=== PATIENT | male | born 1985 | race Caucasian/White ===

== ENCOUNTER 2018-01-22 10:12 | Emergency (ER) | payer OTHER ==
--- NOTE | 2018-01-22 10:52 | EDPHY ---
H & P Stated Complaint: pt states had syncopal episode 3 weeks ago and today palpitations feels "of Time Seen by Provider: 01/22/18 10:40 - Medical/Surgical History Hx Asthma: No Hx Chronic Respiratory Disease: No Hx Diabetes: No Hx Cardiac Disease: No Hx Renal Disease: No Hx Cirrhosis: No Hx Alcoholism: No Hx HIV/AIDS: No Hx Splenectomy or Spleen Trauma: No Other PMH: denies - Social History Smoking Status: Never smoked Constitutional: Initial Vital Signs Temperature (C) 36.6 C 01/22/18 10:14 Heart Rate 58 L 01/22/18 10:14 Respiratory Rate 16 01/22/18 10:14 Blood Pressure 125/70 H 01/22/18 10:14 O2 Sat (%) 98 01/22/18 10:14 O2 Delivery Mode Room Air Allergies/Adverse Reactions: No Known Allergies Allergy (Unverified 01/22/18 10:14) Home Medications: Medication Instructions Recorded NK [No Known Home Meds] 01/22/18 Medical Decision Making ED Course/Re-evaluation: CHIEF COMPLAINT: Lightheadedness, palpitations, prior syncope HISTORY OF PRESENT ILLNESS: The patient is a normally healthy 32 y/o male who arrives with his family for evaluation of lightheadedness and palpitations onset today following a syncopal event three weeks ago. Three weeks ago while out at dinner with his family, he suddenly became "lightheaded, dizzy, overheated, and got tunnel vision." He had just eaten pizza and had two small alcoholic drinks off a flight. He walked into the bathroom to splash water on his face and lost consciousness. He followed up with his PCP following this event and she recommended following up with a residential property consultant for further evaluation. This appointment is scheduled for next week. He promised his PCP he would come to the ED if symptoms returned. Today, he developed similar lightheadedness, then noticed "heart pounding" sensation. His measured his pulse around 60 during those symptoms. REVIEW OF SYSTEMS: A comprehensive 10 system review of systems is otherwise negative aside from elements mentioned in the history of present illness and medical decision making. PHYSICAL EXAM: HR, BP, O2 Sat, RR. Temp noted General Appearance: Alert, well hydrated, appropriate, and non-toxic appearing. Head: Atraumatic without scalp tenderness or obvious injury Eyes: Pupils equal, round, reactive to light and accommodation, EOMI, no trauma , no injection. Nose: Atraumatic, no rhinorrhea, clear. Throat: Mucus membranes moist. Neck: Supple, non-tender, no lymphadenopathy. Respiratory: No retractions, no distress, no wheezes, and no accessory muscle use. Lungs are clear to auscultation bilaterally. Cardiovascular: Regular rate and rhythm, no murmurs, rubs, or gallops. Good capillary refill all extremities. Gastrointestinal: Abdomen is soft, non-tender, non-distended, no masses, no rebound, no guarding, no peritoneal signs. Musculoskeletal: Normal active ROM of all extremities, atraumatic. Neurological: Alert, appropriate, and interactive. Nonfocal apart from baseline mild left facial droop. Skin: No rashes, good turgor, no nodules on palpation. PAST MEDICAL HISTORY: Denies PAST SURGICAL HISTORY: Denies SOCIAL HISTORY: and children at bedside. Employed. PCP: Dr. Espinosa. DIAGNOSTICS/PROCEDURES/CRITICAL CARE TIME: The 12 lead EKG was interpreted by myself. Sinus mechanism, no ischemia. See hard copy and/or "tracemaster" electronic copy for interpretation. DIFFERENTIAL DIAGNOSIS: The differential diagnosis for the patient's symptoms included but was not limited to vasovagal syncope/presyncope, peripheral and central causes of vertigo, orthostatic causes including dehydration, cardiogenic and neurogenic causes, and blood loss. MEDICAL DECISION MAKING: This is a healthy 32 y/o male who presents with lightheadedness and palpitations in the setting of a syncopal episode 3 weeks ago of unknown etiology. He has a completely normal exam here. Suspect vasovagal event, though cannot exclude cardiac cause. Plan for IV, labs, EKG. EKG is normal. Labs unremarkable. Reassessed patient and discussed findings. Recommended cardiology follow up as planned. Return precautions discussed. He is comfortable with this plan. - Data Points Laboratory Results: 01/22/18 01/22/18 11:00 10:58 POC Hgb 15.3 gm/dL gm/dL (13.7-17.5) POC Hct 45 % % (40-51) POC Sodium 145 mEq/L mEq/L (135-145) POC Potassium 4.0 mEq/L mEq/L (3.3-5.0) POC Chloride 104 mEq/L mEq/L (97-110) POC BUN 11 mg/dL mg/dL (7-23) POC Creatinine 0.7 mg/dL mg/dL (0.7-1.3) POC Glucose 87 mg/dL mg/dL (70-100) POC Troponin I 0.00 ng/mL ng/mL (0.00-0.08) Point of Care Test Results: Chemistry 01/22/18 01/22/18 11:00 10:58 POC Sodium 145 mEq/L mEq/L (135-145) POC Potassium 4.0 mEq/L mEq/L (3.3-5.0) POC Chloride 104 mEq/L mEq/L (97-110) POC BUN 11 mg/dL mg/dL (7-23) POC Creatinine 0.7 mg/dL mg/dL (0.7-1.3) POC Glucose 87 mg/dL mg/dL (70-100) POC Troponin I 0.00 ng/mL ng/mL (0.00-0.08) ISTAT H&H 01/22/18 10:58 POC Hgb 15.3 gm/dL gm/dL (13.7-17.5) POC Hct 45 % % (40-51) Departure - Departure Disposition: Home, Routine, Self-Care Clinical Impression: Palpitations Condition: Good Instructions: Heart Palpitations (ED), Syncope (ED) Additional Instructions: Follow up with residential property consultant as planned. Increase fluid intake. Return to the ED for any worsening of condition. Referrals: Georgette Espinosa MD [Primary Care Provider] - As per Instructions Richard Jacinto MD [Medical Doctor] - As per Instructions Report Scribed for: Jose Pitt Report Scribed by: Cintia Mandel Date of Report: 01/22/18 Time of Report: 11:52
[2018-01-22 11:19] VITALS: BP 109/70
--- NOTE | 2018-01-22 14:17 | CPEKG ---
Test Reason : OPEN Blood Pressure : / mmHG Vent. Rate : 050 BPM Atrial Rate : 050 BPM P-R Int : 172 ms QRS Dur : 072 ms QT Int : 420 ms P-R-T Axes : 038 063 055 degrees QTc Int : 383 ms Sinus rhythm Confirmed by Jose Pitt ([id number] on 01/22/2018 2:17:21 PM Referred By: Confirmed By:Jose Pitt
== END 2018-01-22 11:26 | disposition home or self-care (01) ==
DX: R00.2 Palpitations (principal); R42 Dizziness and giddiness
CPT/HCPCS: 82435-PO; 82565-PO; 82947-PO; 84132-PO; 84295-PO; 84484-PO; 84520-PO; 85014-PO